=== PATIENT | female | born 1985 | race Caucasian/White ===

== ENCOUNTER 2016-12-27 10:35 | Inpatient (IN) | payer MEDICAID, OTHER ==
[~2016-12-27] VITALS: Ht 172.7 cm; Wt 53.7 kg
[~2016-12-27 10:35] MED LIST: PREN1TAB80 PO
[2016-12-27 11:04] LABS: BASOPHILS % (AUTO) 0.7 % (0.0-2.0); EOSINOPHILS % (AUTO) 0 % (1.0-6.0); HEMATOCRIT 42.4 % (36-46); HEMOGLOBIN 14.2 g/dL (12.0-16.0); LYMPHOCYTES # (AUTO) 1.7 K/uL (1.0-4.8); LYMPHOCYTES % (AUTO) 22.5 % (22.0-44.0); MEAN CORPUSCULAR HEMOGLOBIN 31.2 pg (26.0-34.0); MEAN CORPUSCULAR HGB CONC 33.6 G/dL (31.0-37.0); MEAN CORPUSCULAR VOLUME 93 fL (80-100); MONOCYTES # (AUTO) 0.7 K/uL (0.1-1.0); MONOCYTES % (AUTO) 8.9 % (2.0-9.0); NEUTROPHILS % (AUTO) 67.9 % (40.0-70.0); PLATELET COUNT (AUTO) 304 K/uL (150-450); RED BLOOD CELL COUNT(AUTO) 4.55 MIL/uL (4.00-5.20); WHITE BLOOD COUNT (AUTO) 7.4 K/uL (4.5-11.0)
[2016-12-27 11:19] LABS: ANION GAP 6 mmol/L (8-16); CALCIUM, TOTAL 9.3 mg/dL (8.8-10.5); CARBON DIOXIDE 28 mmol/L (22-29); CHLORIDE 100 mmol/L (98-107); CREATININE 1.03 mg/dL (0.60-1.30); GLOMERULAR FILTR. RATE CALC > 60 mL/min (>60); POTASSIUM 4.1 mmol/L (3.5-5.1); SODIUM SERUM 134 mmol/L (136-145); UREA NITROGEN, BLOOD 16 mg/dL (7-18)
[2016-12-27 11:25] LABS: ALANINE AMINOTRANSFERASE 591 U/L (12-78); ALBUMIN 3.9 g/dL (3.4-5.0); ASPARTATE AMINOTRANSFERASE 820 U/L (15-37); BILIRUBIN,TOTAL 0.7 mg/dL (0.1-1.0); TOTAL PROTEIN, SERUM 8.3 g/dL (6.4-8.2)
[2016-12-27] MEDS ORDERED: LORazepam 1 MG TABLET PO ONE (12:15)
[2016-12-27] MEDS ORDERED: HALOPERIDOL 5 MG TABLET PO PRN (12:30)
[2016-12-27 12:47] LABS: CHOL/HDL RATIO 1.6 (3.9-5.7)
[2016-12-27 14:08] VITALS: BP 138/89
[2016-12-27 14:11] VITALS: BP 138/89
[2016-12-27 14:13] VITALS: BP 138/89
[2016-12-27] MEDS ORDERED: ACETAMINOPHEN 325 MG TABLET PO PRN (14:30)
[2016-12-27] MEDS: NICOTINE 7 MG/24 HOUR PATCH TD SCH (15:02)
[2016-12-27] MEDS: LORazepam 2 MG TABLET PO PRN (16:44)
[2016-12-27] MEDS: BACITRACIN 28.4 GM OINTMENT TP SCH (16:45)
[2016-12-27] MEDS ORDERED: NICOTINE 7 MG/24 HOUR PATCH TD ONE (17:45)
[2016-12-27] MEDS: ZOLPIDEM TARTRATE 10 MG TABLET PO PRN (20:39)
[2016-12-27 21:40] VITALS: BP 136/94
[2016-12-27 21:49] VITALS: BP 118/69
[2016-12-27] MEDS ORDERED: LOPERAMIDE HCL 2 MG CAPSULE PO PRN (22:30)
[2016-12-28 08:20] VITALS: BP 126/75
[2016-12-28] MEDS: LORazepam 2 MG TABLET PO PRN (08:40)
[2016-12-28] MEDS: BACITRACIN 28.4 GM OINTMENT TP SCH ×2 (08:45→17:33)
[2016-12-28] MEDS: NICOTINE 7 MG/24 HOUR PATCH TD SCH (08:47)
[2016-12-28 18:00] VITALS: BP 130/80
[2016-12-28] MEDS: ZOLPIDEM TARTRATE 10 MG TABLET PO PRN (21:28)
[2016-12-29 08:10] LABS: HEPATITIS Bs ANTIGEN SCREEN P Negative (Negative); HEPATITIS C AB SCREEN <0.1 s/co ratio (0.0-0.9)
[2016-12-29 09:17] VITALS: BP 118/75
[2016-12-29] MEDS: LORazepam 2 MG TABLET PO PRN (09:42)
[2016-12-29] MEDS: RisperiDONE 1 MG TABLET PO SCH ×2 (09:42→16:37)
[2016-12-29] MEDS: BACITRACIN 28.4 GM OINTMENT TP SCH ×2 (09:48→16:38)
[2016-12-29] MEDS: NICOTINE 7 MG/24 HOUR PATCH TD SCH (09:48)
[2016-12-29 16:45] VITALS: BP 105/64
[2016-12-29] MEDS: ZOLPIDEM TARTRATE 10 MG TABLET PO PRN (20:05)
[2016-12-30 08:50] VITALS: BP 129/81
[2016-12-30] MEDS: RisperiDONE 1 MG TABLET PO SCH ×2 (09:15→16:12)
[2016-12-30] MEDS: NICOTINE 7 MG/24 HOUR PATCH TD SCH (09:16)
[2016-12-30] MEDS: BACITRACIN 28.4 GM OINTMENT TP SCH ×2 (09:17→19:39)
[2016-12-30 16:10] VITALS: BP 126/78
[2016-12-30] MEDS: LORazepam 2 MG TABLET PO PRN (16:12)
[2016-12-30] MEDS: ZOLPIDEM TARTRATE 10 MG TABLET PO PRN (20:51)
[2016-12-31] MEDS: RisperiDONE 1 MG TABLET PO SCH ×2 (08:25→16:14)
[2016-12-31] MEDS: BACITRACIN 28.4 GM OINTMENT TP SCH ×2 (08:26→16:39)
[2016-12-31] MEDS: NICOTINE 7 MG/24 HOUR PATCH TD SCH (08:26)
[2016-12-31 08:48] VITALS: BP 124/79
[2016-12-31] MEDS: LORazepam 2 MG TABLET PO PRN (16:14)
[2016-12-31 16:51] VITALS: BP 119/70
[2016-12-31] MEDS: ZOLPIDEM TARTRATE 10 MG TABLET PO PRN (20:20)
[2017-01-01] MEDS: RisperiDONE 1 MG TABLET PO SCH ×2 (08:23→16:41)
[2017-01-01] MEDS: NICOTINE 7 MG/24 HOUR PATCH TD SCH (08:24)
[2017-01-01 09:59] VITALS: BP 136/80
[2017-01-01] MEDS ORDERED: RISP1TAB89 PO (10:22)
[2017-01-01] MEDS ORDERED: BACI3.5O22 TP (10:25)
[2017-01-01] MEDS: BACITRACIN 28.4 GM OINTMENT TP SCH (10:41)
== END 2017-01-01 11:45 | disposition home or self-care (01) | DRG 753 ==
LOC: EEVIPCON 10:36 → EMS 10:36 → 3EI 12:41
PROVIDERS: ADMIT Psychiatry & Neurology Psychiatry; ATTEND Psychiatry & Neurology Psychiatry
DX: F31.9 Bipolar disorder, unspecified (principal); R45.851 Suicidal ideations; R00.0 Tachycardia, unspecified; F11.10 Opioid abuse, uncomplicated; F15.10 Other stimulant abuse, uncomplicated; F17.200 Nicotine dependence, unspecified, uncomplicated; R74.0 Nonspecific elevation of levels of transaminase and lactic acid dehydrogenase [LDH]; R74.8 Abnormal levels of other serum enzymes; Z88.1 Allergy status to other antibiotic agents; Z91.013 Allergy to seafood; Z59.0 Homelessness; F43.10 Post-traumatic stress disorder, unspecified; Z91.5 Personal history of self-harm; Z71.51 Drug abuse counseling and surveillance of drug abuser
CPT/HCPCS: 80074; 99285; 99406; G0480